=== PATIENT | female | born 1995 | race Caucasian/White ===

== ENCOUNTER 2023-04-12 12:06 | Inpatient (IN) | payer OTHER ==
[2023-04-12 12:16] VITALS: BMI 27.3
[2023-04-12 13:25] LABS: BASO % 0.7 % (0-2.0); EOS % 3.2 % (0-4.5); HEMATOCRIT 21.6 % (32.4-45.2); HEMOGLOBIN 7.3 GM/dL (10.7-15.3); LYMPH % 16.6 % (8-40); MCH 27.6 pg (25.7-33.7); MCHC 33.9 g/dl (32.0-36.0); MEAN CELL VOLUME 81.3 fl (80-96); MEAN PLT VOLUME 9.9 fl (7.5-11.1); MONO % 5.8 % (3.8-10.2); NEUT % 73.7 % (42.8-82.8); RBC 2.65 M/mm3 (3.60-5.2); RDW 15.9 % (11.6-15.6); WHITE BLOOD COUNT 8.6 K/mm3 (4.0-10.0)
[2023-04-12 13:27] LABS: PLATELET COUNT 32 10^3/uL (134-434)
[2023-04-12] MEDS ORDERED: ACETAMINOPHEN INJECTION 100 ML IVPB ONE (13:28)
[2023-04-12] MEDS ORDERED: LABETALOL HCL 20 MG/4 ML VIAL ONE (13:29)
[2023-04-12 13:34] LABS: INR 1.27 (0.83-1.09); PROTHROMBIN TIME (PATIENT) 14.7 SEC (9.7-13.0)
[2023-04-12 13:37] LABS: ACTIVATED PTT 32.3 SECONDS (25.2-36.5)
[2023-04-12 13:38] LABS: EPI CELLS 18 /uL (0-25.1); HYALINE CASTS 0 /uL (0-3.1); PH,URINE 6.5 (5.0-8.0); URINE APPEARANCE CLEAR; URINE BACTERIA 51 /uL (0-1359); URINE BILIRUBIN NEGATIVE (NEGATIVE); URINE COLOR YELLOW; URINE GLUCOSE (UA) NEGATIVE (NEGATIVE); URINE KETONE NEGATIVE (NEGATIVE); URINE LEUK ESTERASE NEGATIVE (NEGATIVE); URINE NITRITE NEGATIVE (NEGATIVE); URINE PROTEIN 4+ (NEGATIVE); URINE RBC 2896 /uL (0-23.9); URINE UROBILINOGEN 0.2 mg/dL (0.2-1.0); URINE WBC 28 /uL (0-25.8)
[2023-04-12 13:45] LABS: CHLORIDE 104 mmol/L (98-107); POTASSIUM 3.9 mmol/L (3.5-5.1); SODIUM 139 mmol/L (136-145)
[2023-04-12 13:46] LABS: ALBUMIN 3.3 g/dl (3.4-5.0); GLUCOSE,RANDOM 95 mg/dL (74-106)
[2023-04-12 13:48] LABS: ANION GAP 12 mmol/L (4-13); BLOOD UREA NITROGEN 96.1 mg/dL (7-18); CO2 22 mmol/L (21-32); MAGNESIUM 1.5 mg/dL (1.8-2.4)
[2023-04-12 13:51] LABS: SGOT/AST 45 U/L (15-37); SGPT/ALT 33 U/L (13-61)
[2023-04-12 13:52] LABS: BILIRUBIN,TOTAL 0.6 mg/dL (0.2-1); TOT PROT 6.9 g/dl (6.4-8.2)
[2023-04-12 13:53] LABS: ALK PHOS 186 U/L (45-117)
[2023-04-12 13:59] LABS: HCG,QUALITATIVE URINE Negative
[2023-04-12 14:07] LABS: CALCIUM 6.1 mg/dL (8.5-10.1); CREATININE 11.5 mg/dL (0.55-1.3)
[2023-04-12] MEDS: ACETAMINOPHEN 1000 MG/100 ML BAG IVPB ONE (14:17)
[2023-04-12] MEDS: LABETALOL HCL 5 MG/1 ML (100MG/20 ML VIAL) IVPUSH ONE (14:17)
[2023-04-12] MEDS ORDERED: MAGNESIUM SULFATE IN WATER 2 GM/50 ML IVPB IVPB ONE (14:27)
[2023-04-12] MEDS: MAGNESIUM SULF 50% (8.12 MEQ/2 ML-1 GM VIAL) IVPB ONE (14:39)
[2023-04-12 15:13] LABS: RETICULOCYTES 1.55 % (0.5-1.5)
[2023-04-12] MEDS ORDERED: CALCIUM GLUC IN NACL, ISO-OSM 1 GM/50 ML BAG IVPB ONE ×2 (15:25→17:31)
[2023-04-12 15:29] LABS: ANISOCYTOSIS 1+; MACROCYTOSIS 1+
[2023-04-12] MEDS: CALCIUM GLUC IN NACL, ISO-OSM 1 GM/50 ML BAG IVPB ONE ×2 (15:32→17:42)
[2023-04-12 16:08] LABS: HEMATOCRIT 20.4 % (32.4-45.2); MCH 27.1 pg (25.7-33.7); MCHC 33.2 g/dl (32.0-36.0); MEAN CELL VOLUME 81.5 fl (80-96); RDW 15.8 % (11.6-15.6); WHITE BLOOD COUNT 8.6 K/mm3 (4.0-10.0)
[2023-04-12 16:26] LABS: CHLORIDE 105 mmol/L (98-107); POTASSIUM 3.6 mmol/L (3.5-5.1); SODIUM 139 mmol/L (136-145)
[2023-04-12 16:28] LABS: ALBUMIN 3.2 g/dl (3.4-5.0); ANION GAP 16 mmol/L (4-13); BLOOD UREA NITROGEN 95.9 mg/dL (7-18); CO2 19 mmol/L (21-32); GLUCOSE,RANDOM 100 mg/dL (74-106)
[2023-04-12 16:31] LABS: HEMOGLOBIN 6.8 GM/dL (10.7-15.3); PLATELET COUNT 32 10^3/uL (134-434)
[2023-04-12 16:32] LABS: SGOT/AST 50 U/L (15-37); SGPT/ALT 36 U/L (13-61)
[2023-04-12 16:33] LABS: BILIRUBIN,TOTAL 0.6 mg/dL (0.2-1); TOT PROT 6.7 g/dl (6.4-8.2)
[2023-04-12 16:35] LABS: ALK PHOS 185 U/L (45-117)
[2023-04-12 16:36] LABS: CALCIUM 5.8 mg/dL (8.5-10.1); CREATININE 11.8 mg/dL (0.55-1.3)
[2023-04-12 17:12] LABS: IRON SERUM 99 ug/dL (50-175); TOTAL IRON BINDING CAPACITY 307 ug/dL (250-450)
[2023-04-12] MEDS ORDERED: NIFEdipine E.R 60 MG TABLET PO ONE (17:24)
[2023-04-12] MEDS: NIFEdipine E.R 60 MG TABLET PO SCH (17:28)
[2023-04-12 18:02] LABS: HIV INTERPRETATION NEGATIVE (NEGATIVE)
[2023-04-12] MEDS ORDERED: ASPIRIN 81 MG CHEWABLE TABLETS PO ONE (18:51)
[2023-04-12] MEDS: hydrALAZINE HCL 20 MG/ML VIAL IVPUSH ONE (21:40)
[2023-04-13 07:54] LABS: HEMATOCRIT 23.9 % (32.4-45.2); HEMOGLOBIN 8.3 GM/dL (10.7-15.3); MCH 28.9 pg (25.7-33.7); MCHC 34.6 g/dl (32.0-36.0); MEAN CELL VOLUME 83.7 fl (80-96); MEAN PLT VOLUME 10.4 fl (7.5-11.1); RBC 2.86 M/mm3 (3.60-5.2); RDW 15.9 % (11.6-15.6); WHITE BLOOD COUNT 9.9 K/mm3 (4.0-10.0)
[2023-04-13 07:57] LABS: CHLORIDE 104 mmol/L (98-107); POTASSIUM 3.9 mmol/L (3.5-5.1); SODIUM 139 mmol/L (136-145)
[2023-04-13 07:58] LABS: PLATELET COUNT 33 10^3/uL (134-434)
[2023-04-13 08:01] LABS: INR 1.27 (0.83-1.09); PROTHROMBIN TIME (PATIENT) 14.7 SEC (9.7-13.0)
[2023-04-13 08:03] LABS: ALBUMIN 3.1 g/dl (3.4-5.0); GLUCOSE,RANDOM 95 mg/dL (74-106); PHOSPHOROUS 7.1 mg/dL (2.5-4.9); SGPT/ALT 65 U/L (13-61)
[2023-04-13 08:04] LABS: BILIRUBIN,TOTAL 0.6 mg/dL (0.2-1); TOT PROT 6.5 g/dl (6.4-8.2)
[2023-04-13 08:05] LABS: ANION GAP 15 mmol/L (4-13); CO2 20 mmol/L (21-32); MAGNESIUM 2.4 mg/dL (1.8-2.4)
[2023-04-13 08:06] LABS: ALK PHOS 190 U/L (45-117); SGOT/AST 95 U/L (15-37)
[2023-04-13 08:11] LABS: CALCIUM 6.2 mg/dL (8.5-10.1); CREATININE 12.2 mg/dL (0.55-1.3)
[2023-04-13] MEDS: CALCIUM GLUCONATE 10% - 1,000 MG/10 ML VIAL IVPB ONE (10:12)
[2023-04-13] MEDS: LABETALOL HCL 200 MG TABLET (FP) PO SCH (13:46)
[2023-04-13] MEDS: traMADol HCL 50 MG TABLET PO ONE (13:46)
[2023-04-14 08:58] LABS: HEMATOCRIT 21.4 % (32.4-45.2); HEMOGLOBIN 7.4 GM/dL (10.7-15.3); MCH 28.7 pg (25.7-33.7); MCHC 34.4 g/dl (32.0-36.0); MEAN CELL VOLUME 83.4 fl (80-96); MEAN PLT VOLUME 10.4 fl (7.5-11.1); PLATELET COUNT 40 10^3/uL (134-434); RBC 2.56 M/mm3 (3.60-5.2); RDW 16.1 % (11.6-15.6); WHITE BLOOD COUNT 7.9 K/mm3 (4.0-10.0)
[2023-04-14 09:34] LABS: ALK PHOS 175 U/L (45-117); ANION GAP 18 mmol/L (4-13); BILIRUBIN,TOTAL 0.5 mg/dL (0.2-1); BLOOD UREA NITROGEN 101.2 mg/dL (7-18); CHLORIDE 102 mmol/L (98-107); CO2 20 mmol/L (21-32); CREATININE 12.9 mg/dL (0.55-1.3); GLUCOSE,RANDOM 84 mg/dL (74-106); POTASSIUM 3.6 mmol/L (3.5-5.1); SGOT/AST 121 U/L (15-37); SGPT/ALT 105 U/L (13-61); SODIUM 139 mmol/L (136-145); TOT PROT 6.2 g/dl (6.4-8.2)
[2023-04-14] MEDS: CALCIUM GLUC IN NACL, ISO-OSM 1 GM/50 ML BAG IVPB ONE (11:48)
[2023-04-15 07:50] LABS: HEMATOCRIT 19.5 % (32.4-45.2); MCH 28.4 pg (25.7-33.7); MCHC 33.7 g/dl (32.0-36.0); MEAN CELL VOLUME 84.2 fl (80-96); MEAN PLT VOLUME 9.9 fl (7.5-11.1); PLATELET COUNT 52 10^3/uL (134-434); RBC 2.32 M/mm3 (3.60-5.2); RDW 16.3 % (11.6-15.6); WHITE BLOOD COUNT 9.4 K/mm3 (4.0-10.0)
[2023-04-15 07:58] LABS: CHLORIDE 103 mmol/L (98-107); SODIUM 138 mmol/L (136-145)
[2023-04-15 08:11] LABS: ALBUMIN 2.8 g/dl (3.4-5.0); ANION GAP 13 mmol/L (4-13); CO2 21 mmol/L (21-32); GLUCOSE,RANDOM 80 mg/dL (74-106); MAGNESIUM 1.9 mg/dL (1.8-2.4)
[2023-04-15 08:13] LABS: SGOT/AST 148 U/L (15-37); SGPT/ALT 141 U/L (13-61)
[2023-04-15 08:14] LABS: BILIRUBIN,TOTAL 0.5 mg/dL (0.2-1); TOT PROT 5.8 g/dl (6.4-8.2)
[2023-04-15 08:16] LABS: ALK PHOS 165 U/L (45-117); BLOOD UREA NITROGEN 104.1 mg/dL (7-18); CALCIUM 5.5 mg/dL (8.5-10.1); CREATININE 13.6 mg/dL (0.55-1.3)
[2023-04-15 08:29] LABS: HEMOGLOBIN 6.6 GM/dL (10.7-15.3)
[2023-04-15] MEDS: CALCIUM GLUC IN NACL, ISO-OSM 1 GM/50 ML BAG IVPB ONE (08:58)
[2023-04-15 13:51] LABS: IRON SERUM 50 ug/dL (50-175)
[2023-04-15 13:52] LABS: TOTAL IRON BINDING CAPACITY 273 ug/dL (250-450)
[2023-04-15] MEDS ORDERED: SODIUM CHLORIDE 250 ML IV PRN (15:08)
[2023-04-15] MEDS: ACETAMINOPHEN 1000 MG/100 ML BAG IVPB ONE (16:50)
[2023-04-16 00:37] LABS: HEMATOCRIT 27.2 % (32.4-45.2); HEMOGLOBIN 9.6 GM/dL (10.7-15.3); MCH 29.6 pg (25.7-33.7); MCHC 35.3 g/dl (32.0-36.0); MEAN CELL VOLUME 83.8 fl (80-96); MEAN PLT VOLUME 9.4 fl (7.5-11.1); PLATELET COUNT 53 10^3/uL (134-434); RBC 3.25 M/mm3 (3.60-5.2); RDW 15.5 % (11.6-15.6); WHITE BLOOD COUNT 11.7 K/mm3 (4.0-10.0)
[2023-04-16 06:30] LABS: HEMATOCRIT 28.1 % (32.4-45.2); MCH 29.9 pg (25.7-33.7); MCHC 35.7 g/dl (32.0-36.0); MEAN CELL VOLUME 83.8 fl (80-96); MEAN PLT VOLUME 9.9 fl (7.5-11.1); PLATELET COUNT 61 10^3/uL (134-434); RBC 3.36 M/mm3 (3.60-5.2); RDW 15.6 % (11.6-15.6); WHITE BLOOD COUNT 10.8 K/mm3 (4.0-10.0)
[2023-04-16 06:49] LABS: CHLORIDE 102 mmol/L (98-107); POTASSIUM 3.9 mmol/L (3.5-5.1); SODIUM 137 mmol/L (136-145)
[2023-04-16 06:58] LABS: ALBUMIN 2.9 g/dl (3.4-5.0); ANION GAP 16 mmol/L (4-13); CO2 20 mmol/L (21-32); GLUCOSE,RANDOM 82 mg/dL (74-106); MAGNESIUM 2.1 mg/dL (1.8-2.4)
[2023-04-16 07:01] LABS: SGOT/AST 163 U/L (15-37); SGPT/ALT 180 U/L (13-61)
[2023-04-16 07:03] LABS: BILIRUBIN,TOTAL 0.6 mg/dL (0.2-1); TOT PROT 6.2 g/dl (6.4-8.2)
[2023-04-16 07:04] LABS: ALK PHOS 179 U/L (45-117)
[2023-04-16] MEDS ORDERED: LIDOCAINE HCL 1%, 10 MG/ML (20ML VIAL) ONE (07:11)
[2023-04-16 07:15] LABS: CALCIUM 5.7 mg/dL (8.5-10.1); CREATININE 13.6 mg/dL (0.55-1.3)
[2023-04-16 07:34] LABS: PHOSPHOROUS 8.5 mg/dL (2.5-4.9)
[2023-04-16] MEDS ORDERED: MIDAZOLAM HCL 2 MG/2 ML SINGLE DOSE VIAL ONE (07:53)
[2023-04-16] MEDS ORDERED: PROPOFOL 20 ML ONE ×2 (07:57→08:07)
[2023-04-16] MEDS: ceFAZolin SODIUM 1 GM VIAL IVPB ONE (08:00)
[2023-04-16] MEDS: LIDOCAINE HCL 1%, 10 MG/ML (20ML VIAL) INF ONE (08:06)
[2023-04-16] MEDS ORDERED: ONDANSETRON 4 MG/2 ML VIAL IVPUSH PRN ×2 (08:30→08:41)
[2023-04-16] MEDS ORDERED: SODIUM CHLORIDE 250 ML IV PRN (08:41)
[2023-04-16] MEDS: CALCIUM GLUC IN NACL, ISO-OSM 1 GM/50 ML BAG IVPB ONE ×2 (10:39→13:18)
[2023-04-16] MEDS: NIFEdipine E.R 60 MG TABLET PO SCH (10:39)
[2023-04-16] MEDS: LABETALOL HCL 200 MG TABLET (FP) PO SCH (10:39)
[2023-04-16] MEDS: LACTATED RINGERS SOLUTION 1,000 ML IV SCH ×2 (10:39→13:17)
[2023-04-16 20:16] LABS: ANTIGLOMERULAR BASEMENT MEN.AB <0.2 units (0.0-0.9); ATYPICAL pANCA <1:20 titer (Neg:<1:20); C-ANCA <1:20 titer (Neg:<1:20)
[2023-04-17 02:27] LABS: BASO % 0.5 % (0-2.0); EOS % 1.7 % (0-4.5); HEMATOCRIT 29.9 % (32.4-45.2); HEMOGLOBIN 10.6 GM/dL (10.7-15.3); LYMPH % 16.2 % (8-40); MCH 29.8 pg (25.7-33.7); MCHC 35.5 g/dl (32.0-36.0); MEAN PLT VOLUME 8.9 fl (7.5-11.1); MONO % 7.6 % (3.8-10.2); PLATELET COUNT 47 10^3/uL (134-434); RBC 3.56 M/mm3 (3.60-5.2); RDW 15.7 % (11.6-15.6); WHITE BLOOD COUNT 10.2 K/mm3 (4.0-10.0)
[2023-04-17 06:36] LABS: HEMATOCRIT 32.1 % (32.4-45.2); HEMOGLOBIN 11.1 GM/dL (10.7-15.3); MCH 29.3 pg (25.7-33.7); MCHC 34.7 g/dl (32.0-36.0); MEAN CELL VOLUME 84.3 fl (80-96); MEAN PLT VOLUME 9.6 fl (7.5-11.1); PLATELET COUNT 52 10^3/uL (134-434); RDW 15.5 % (11.6-15.6); WHITE BLOOD COUNT 10.6 K/mm3 (4.0-10.0)
[2023-04-17 06:48] LABS: INR 1.21 (0.83-1.09)
[2023-04-17 06:51] LABS: ACTIVATED PTT 29.7 SECONDS (25.2-36.5)
[2023-04-17 07:28] LABS: CHLORIDE 104 mmol/L (98-107); POTASSIUM 3.8 mmol/L (3.5-5.1); SODIUM 143 mmol/L (136-145)
[2023-04-17 07:37] LABS: GLUCOSE,RANDOM 90 mg/dL (74-106)
[2023-04-17 07:38] LABS: ANION GAP 14 mmol/L (4-13); CO2 25 mmol/L (21-32)
[2023-04-17 07:42] LABS: SGOT/AST 103 U/L (15-37); SGPT/ALT 57 U/L (13-61)
[2023-04-17 07:43] LABS: BILIRUBIN,TOTAL 0.8 mg/dL (0.2-1); TOT PROT 6.3 g/dl (6.4-8.2)
[2023-04-17 07:44] LABS: ALK PHOS 184 U/L (45-117)
[2023-04-17 07:54] LABS: BLOOD UREA NITROGEN 64.1 mg/dL (7-18); CALCIUM 6.5 mg/dL (8.5-10.1); CREATININE 9.5 mg/dL (0.55-1.3)
[2023-04-17] MEDS: CALCIUM ACETATE 667 MG CAPSULE (FP) PO SCH (09:24)
[2023-04-17] MEDS: CALCIUM GLUC IN NACL, ISO-OSM 1 GM/50 ML BAG IVPB ONE (09:25)
[2023-04-17] MEDS ORDERED: SODIUM CHLORIDE 250 ML IV PRN (11:37)
[2023-04-17] MEDS: CALCIUM GLUCONATE 10% - 1,000 MG/10 ML VIAL IVPB ONE (11:48)
[2023-04-17 15:44] LABS: GAMMA GLUTAMYL TRANSPEPTIDASE 64 U/L (5-85)
[2023-04-17] MEDS: NIFEdipine E.R. 30 MG TABLET PO ONE (15:55)
[2023-04-17 16:08] LABS: TOTAL PROTEIN, URINE 249.4 mg/dL (Not Estab.)
[2023-04-17 17:08] LABS: FREE KAPPA,SERUM 156.3 mg/L (3.3-19.4)
[2023-04-18 03:48] VITALS: RESP 18
[2023-04-18 11:05] LABS: HEMATOCRIT 28.1 % (32.4-45.2); HEMOGLOBIN 9.9 GM/dL (10.7-15.3); MCHC 35.3 g/dl (32.0-36.0); MEAN PLT VOLUME 9.2 fl (7.5-11.1); PLATELET COUNT 83 10^3/uL (134-434); RBC 3.31 M/mm3 (3.60-5.2); RDW 15.7 % (11.6-15.6); WHITE BLOOD COUNT 10.3 K/mm3 (4.0-10.0)
[2023-04-18 11:26] LABS: CHLORIDE 101 mmol/L (98-107); POTASSIUM 3.6 mmol/L (3.5-5.1); SODIUM 137 mmol/L (136-145)
[2023-04-18 11:28] LABS: ANION GAP 11 mmol/L (4-13); CO2 25 mmol/L (21-32); GLUCOSE,RANDOM 214 mg/dL (74-106)
[2023-04-18 11:29] LABS: ALBUMIN 2.9 g/dl (3.4-5.0); BLOOD UREA NITROGEN 74.2 mg/dL (7-18)
[2023-04-18 11:31] LABS: PHOSPHOROUS 7.2 mg/dL (2.5-4.9); SGPT/ALT 21 U/L (13-61)
[2023-04-18 11:32] LABS: SGOT/AST 45 U/L (15-37)
[2023-04-18 11:33] LABS: BILIRUBIN,TOTAL 0.6 mg/dL (0.2-1); TOT PROT 6.1 g/dl (6.4-8.2)
[2023-04-18 11:34] LABS: ALK PHOS 171 U/L (45-117); CALCIUM 5.5 mg/dL (8.5-10.1); CREATININE 10.4 mg/dL (0.55-1.3)
[2023-04-18] MEDS: NIFEdipine E.R. 90 MG TABLET PO SCH (12:27)
[2023-04-18 13:08] LABS: ALBUMIN % 59.9 % (.); ALPHA-1 FOR UPE 3.5 % (.); TOTAL PROTEIN, URINE 267.6 mg/dL (Not Estab.)
[2023-04-18 15:33] VITALS: TEMP 98
[2023-04-18 15:52] VITALS: BP 152/86; PULSE 80
== END 2023-04-18 18:24 | disposition home or self-care (01) | DRG 470 ==
LOC: JER 12:06 → JERBED 14:19 → J4W 20:31
PROVIDERS: ADMIT Internal Medicine; ATTEND Internal Medicine
PROC: 30233N1 Transfusion of Nonautologous Red Blood Cells into Peripheral Vein, Percutaneous Approach (ICD-10-PCS; 2023-04-12)
PROC: 0JH63XZ Insertion of Tunneled Vascular Access Device into Chest Subcutaneous Tissue and Fascia, Percutaneous Approach (ICD-10-PCS; principal; 2023-04-16 07:30)
PROC: 5A1D70Z Performance of Urinary Filtration, Intermittent, Less than 6 Hours Per Day (ICD-10-PCS; 2023-04-18)
DX: I12.0 Hypertensive chronic kidney disease with stage 5 chronic kidney disease or end stage renal disease (principal); D69.3 Immune thrombocytopenic purpura; D69.6 Thrombocytopenia, unspecified; E87.20 Acidosis, unspecified; N18.6 End stage renal disease; D62 Acute posthemorrhagic anemia; E83.51 Hypocalcemia; D63.1 Anemia in chronic kidney disease; I16.1 Hypertensive emergency; Z99.2 Dependence on renal dialysis; E21.3 Hyperparathyroidism, unspecified
CPT/HCPCS: 0241U-QW; 36415; 36430; 70450-TC; 71045-TC-FY; 71046-TC-FY; 74181-TC; 76000-TC-FY; 76700-TC; 76775-TC; 80053; 81003; 82248; 82310; 82550; 82553; 82570; 82607; 82668; 82728; 82746; 82977; 83010; 83036; 83516; 83520; 83540; 83550; 83615; 83735; 83883; 83970; 84100; 84155; 84156; 84157; 84165; 84166; 84436; 84443; 84484; 84703; 85025; 85027; 85032; 85045; 85610; 85730; 86038; 86160; 86225; 86256; 86704; 86707; 86708; 86803; 86850; 86900; 86901; 86922; 87040; 87086; 87340; 87389; 87517; 87902; 93005; 93010; 93306-TC; 93975; 94760; 99285-25; C1750; J0131; J1644; P9037; P9038; P9058

== ENCOUNTER 2023-05-13 11:59 | Inpatient (IN) | payer OTHER ==
[2023-05-13 15:27] LABS: VENOUS BASE EXCESS 0.4 mmol/L (-2-2); VENOUS O2 SATURATION 84.3 % (70-80); VENOUS PCO2 36.7 mmHg (38-52); VENOUS PH 7.442 (7.310-7.410)
[2023-05-13 15:38] LABS: INR 1.2 (0.83-1.09); PROTHROMBIN TIME (PATIENT) 13.9 SEC (9.7-13.0)
[2023-05-13 15:41] LABS: ACTIVATED PTT 29.5 SECONDS (25.2-36.5)
[2023-05-13 15:54] LABS: HEMATOCRIT 20.6 % (32.4-45.2); MCH 27.8 pg (25.7-33.7); MCHC 34.1 g/dl (32.0-36.0); MEAN CELL VOLUME 81.4 fl (80-96); MEAN PLT VOLUME 8.8 fl (7.5-11.1); PLATELET COUNT 38 10^3/uL (134-434); RBC 2.54 M/mm3 (3.60-5.2); RDW 15.7 % (11.6-15.6); WHITE BLOOD COUNT 21.4 K/mm3 (4.0-10.0)
[2023-05-13 16:04] LABS: POTASSIUM 3.9 mmol/L (3.5-5.1)
[2023-05-13 16:06] LABS: CALCIUM 8.7 mg/dL (8.5-10.1)
[2023-05-13 16:07] LABS: ALBUMIN 3.5 g/dl (3.4-5.0); BLOOD UREA NITROGEN 16.3 mg/dL (7-18)
[2023-05-13 16:10] LABS: CREATININE 3.5 mg/dL (0.55-1.3)
[2023-05-13 16:11] LABS: BILIRUBIN,TOTAL 0.7 mg/dL (0.2-1); TOT PROT 6.9 g/dl (6.4-8.2)
[2023-05-13 18:43] LABS: ANISOCYTOSIS 1+
[2023-05-13 18:54] LABS: PLATELET ESTIMATE DECREASED
[2023-05-13] MEDS ORDERED: VANCOMYCIN/WATER FOR INJ (PEG) 1,000 MG/200 ML BAG IVPB ONE (20:00)
[2023-05-13 20:21] LABS: EPI CELLS 12 /uL (0-25.1); HYALINE CASTS 0 /uL (0-3.1); PH,URINE 7.5 (5.0-8.0); URINE APPEARANCE CLEAR; URINE BACTERIA 42 /uL (0-1359); URINE BILIRUBIN NEGATIVE (NEGATIVE); URINE COLOR YELLOW; URINE GLUCOSE (UA) NEGATIVE (NEGATIVE); URINE KETONE NEGATIVE (NEGATIVE); URINE LEUK ESTERASE TRACE (NEGATIVE); URINE NITRITE NEGATIVE (NEGATIVE); URINE PROTEIN 3+ (NEGATIVE); URINE RBC 35 /uL (0-23.9); URINE UROBILINOGEN 0.2 mg/dL (0.2-1.0); URINE WBC 13 /uL (0-25.8)
[2023-05-13] MEDS: PIPERACILLIN/TAZOB 2.25 GM 2.25 GM in DEXTROSE 5%-WATER - 50 ML IVPB SCH (21:07)
[2023-05-13 21:17] VITALS: BMI 25.5
[2023-05-13] MEDS: LABETALOL HCL 200 MG TABLET (FP) PO SCH (21:32)
[2023-05-13 22:37] LABS: YEAST NONE SEEN (NEGATIVE)
[2023-05-14] MEDS: VANCOMYCIN/WATER FOR INJ (PEG) 1,000 MG/200 ML BAG IVPB ONE (01:07)
[2023-05-14 02:01] LABS: BASO % 0.8 % (0-2.0); HEMATOCRIT 23.8 % (32.4-45.2); HEMOGLOBIN 8.1 GM/dL (10.7-15.3); LYMPH % 18.9 % (8-40); MCH 28.6 pg (25.7-33.7); MCHC 34.1 g/dl (32.0-36.0); MEAN CELL VOLUME 83.8 fl (80-96); MEAN PLT VOLUME 9.7 fl (7.5-11.1); MONO % 4.7 % (3.8-10.2); NEUT % 72.6 % (42.8-82.8); PLATELET COUNT 41 10^3/uL (134-434); RBC 2.83 M/mm3 (3.60-5.2); RDW 15.5 % (11.6-15.6); WHITE BLOOD COUNT 14.7 K/mm3 (4.0-10.0)
[2023-05-14] MEDS: CALCIUM ACETATE 667 MG CAPSULE (FP) PO SCH (08:20)
[2023-05-14 08:47] LABS: BASO % 0.7 % (0-2.0); EOS % 2.7 % (0-4.5); HEMATOCRIT 24.6 % (32.4-45.2); HEMOGLOBIN 8.3 GM/dL (10.7-15.3); LYMPH % 17.3 % (8-40); MCH 28.4 pg (25.7-33.7); MCHC 33.9 g/dl (32.0-36.0); MEAN CELL VOLUME 83.6 fl (80-96); MONO % 3.7 % (3.8-10.2); NEUT % 75.6 % (42.8-82.8); PLATELET COUNT 46 10^3/uL (134-434); RBC 2.94 M/mm3 (3.60-5.2); WHITE BLOOD COUNT 12.5 K/mm3 (4.0-10.0)
[2023-05-14 08:49] LABS: INR 1.19 (0.83-1.09); PROTHROMBIN TIME (PATIENT) 13.8 SEC (9.7-13.0)
[2023-05-14 08:51] LABS: ACTIVATED PTT 28.7 SECONDS (25.2-36.5)
[2023-05-14 09:04] LABS: POTASSIUM 4.4 mmol/L (3.5-5.1)
[2023-05-14 09:13] LABS: ALBUMIN 3.7 g/dl (3.4-5.0); CALCIUM 8.5 mg/dL (8.5-10.1); MAGNESIUM 2.1 mg/dL (1.8-2.4)
[2023-05-14 09:14] LABS: BLOOD UREA NITROGEN 31.8 mg/dL (7-18)
[2023-05-14 09:16] LABS: CREATININE 5.7 mg/dL (0.55-1.3); PHOSPHOROUS 4.6 mg/dL (2.5-4.9)
[2023-05-14 09:17] LABS: BILIRUBIN,TOTAL 1.1 mg/dL (0.2-1)
[2023-05-14 09:18] LABS: TOT PROT 7.1 g/dl (6.4-8.2)
[2023-05-14] MEDS ORDERED: ACETAMINOPHEN 1000 MG/100 ML BAG IVPB PRN (09:37)
[2023-05-14] MEDS: NIFEdipine E.R. 90 MG TABLET PO SCH (10:26)
[2023-05-15] MEDS ORDERED: SODIUM CHLORIDE 250 ML IV PRN (09:19)
[2023-05-15 10:34] LABS: HEMOGLOBIN 7.2 GM/dL (10.7-15.3); MCH 28.8 pg (25.7-33.7); MCHC 34.3 g/dl (32.0-36.0); MEAN PLT VOLUME 9.3 fl (7.5-11.1); PLATELET COUNT 47 10^3/uL (134-434); WHITE BLOOD COUNT 9.3 K/mm3 (4.0-10.0)
[2023-05-15 11:05] LABS: CHLORIDE 106 mmol/L (98-107); POTASSIUM 4.2 mmol/L (3.5-5.1); SODIUM 141 mmol/L (136-145)
[2023-05-15 11:07] LABS: ALBUMIN 3.2 g/dl (3.4-5.0)
[2023-05-15 11:08] LABS: ANION GAP 13 mmol/L (4-13); BLOOD UREA NITROGEN 48.8 mg/dL (7-18); CALCIUM 8.6 mg/dL (8.5-10.1); CO2 22 mmol/L (21-32); GLUCOSE,RANDOM 174 mg/dL (74-106)
[2023-05-15] MEDS: EPOETIN ALFA-EPBX 10,000 UNIT/ML VIAL SQ ONE (11:08)
[2023-05-15 11:10] LABS: SGOT/AST 19 U/L (15-37); SGPT/ALT 18 U/L (13-61)
[2023-05-15 11:12] LABS: BILIRUBIN,TOTAL 0.7 mg/dL (0.2-1); TOT PROT 6.8 g/dl (6.4-8.2)
[2023-05-15 11:18] LABS: ALK PHOS 206 U/L (45-117); CREATININE 7.8 mg/dL (0.55-1.3)
[2023-05-15] MEDS ORDERED: IOHEXOL (OMNIPAQUE PO) 12 MG/ML - 500 ML BOTTLE PO ONE (12:55)
[2023-05-15] MEDS ORDERED: PIPERACILLIN/TAZOBACTAM 2.25 GM VIAL IVPB ONE (12:57)
[2023-05-15] MEDS: ACETAMINOPHEN 325 MG TABLET (FP) PO PRN (17:16)
[2023-05-16 10:13] LABS: HEMATOCRIT 24.1 % (32.4-45.2); HEMOGLOBIN 8.3 GM/dL (10.7-15.3); MCH 28.8 pg (25.7-33.7); MCHC 34.6 g/dl (32.0-36.0); MEAN CELL VOLUME 83.4 fl (80-96); MEAN PLT VOLUME 9.8 fl (7.5-11.1); PLATELET COUNT 48 10^3/uL (134-434); RBC 2.89 M/mm3 (3.60-5.2); RDW 16.5 % (11.6-15.6); WHITE BLOOD COUNT 9.5 K/mm3 (4.0-10.0)
[2023-05-16 10:23] LABS: POTASSIUM 3.9 mmol/L (3.5-5.1)
[2023-05-16 10:35] LABS: CALCIUM 8.7 mg/dL (8.5-10.1)
[2023-05-16 10:36] LABS: ALBUMIN 3.7 g/dl (3.4-5.0); MAGNESIUM 2.2 mg/dL (1.8-2.4)
[2023-05-16 10:39] LABS: CREATININE 5.6 mg/dL (0.55-1.3); PHOSPHOROUS 4.9 mg/dL (2.5-4.9)
[2023-05-16 10:40] LABS: BILIRUBIN,TOTAL 0.6 mg/dL (0.2-1)
[2023-05-16 10:41] LABS: TOT PROT 7.5 g/dl (6.4-8.2)
[2023-05-16 10:44] LABS: BLOOD UREA NITROGEN 21.7 mg/dL (7-18)
[2023-05-16] MEDS ORDERED: MIDAZOLAM HCL 2 MG/2 ML SINGLE DOSE VIAL ONE (13:29)
[2023-05-16] MEDS ORDERED: FENTANYL CITRATE/PF 50 MCG/ML VIAL ONE (13:29)
[2023-05-16] MEDS: FENTANYL CITRATE/PF 50 MCG/ML VIAL IVPUSH ONE (14:20)
[2023-05-16] MEDS: MIDAZOLAM HCL 2 MG/2 ML SINGLE DOSE VIAL IVPUSH ONE (14:20)
[2023-05-16] MEDS ORDERED: SODIUM CHLORIDE 250 ML IV PRN (17:18)
[2023-05-17 08:30] LABS: HEMATOCRIT 23.2 % (32.4-45.2); HEMOGLOBIN 7.8 GM/dL (10.7-15.3); MCH 28.6 pg (25.7-33.7); MCHC 33.8 g/dl (32.0-36.0); MEAN CELL VOLUME 84.8 fl (80-96); MEAN PLT VOLUME 9.8 fl (7.5-11.1); PLATELET COUNT 54 10^3/uL (134-434); RBC 2.73 M/mm3 (3.60-5.2); RDW 16.3 % (11.6-15.6); WHITE BLOOD COUNT 9.9 K/mm3 (4.0-10.0)
[2023-05-17 08:49] LABS: CHLORIDE 100 mmol/L (98-107); POTASSIUM 4.1 mmol/L (3.5-5.1); SODIUM 137 mmol/L (136-145)
[2023-05-17 09:03] LABS: ALBUMIN 3.7 g/dl (3.4-5.0); ANION GAP 9 mmol/L (4-13); BLOOD UREA NITROGEN 33.1 mg/dL (7-18); CALCIUM 8.4 mg/dL (8.5-10.1); CO2 28 mmol/L (21-32); GLUCOSE,RANDOM 76 mg/dL (74-106)
[2023-05-17 09:07] LABS: SGOT/AST 17 U/L (15-37); SGPT/ALT 19 U/L (13-61)
[2023-05-17 09:08] LABS: BILIRUBIN,TOTAL 0.6 mg/dL (0.2-1)
[2023-05-17 09:09] LABS: ALK PHOS 208 U/L (45-117)
[2023-05-17 09:14] LABS: CREATININE 8.1 mg/dL (0.55-1.3)
[2023-05-17] MEDS: EPOETIN ALFA-EPBX 10,000 UNIT/ML VIAL IVPUSH ONE (11:39)
[2023-05-17] MEDS: LIDOCAINE HCL 1%, 10 MG/ML (50 mL VIAL) SQ ONE ×2 (17:13→17:42)
[2023-05-17] MEDS: LIDOCAINE HCL 1%, 10 MG/ML (20ML VIAL) SQ ONE (17:43)
[2023-05-18 08:47] LABS: HEMATOCRIT 24.5 % (32.4-45.2); HEMOGLOBIN 8.3 GM/dL (10.7-15.3); MCH 28.9 pg (25.7-33.7); MEAN CELL VOLUME 84.9 fl (80-96); MEAN PLT VOLUME 11.1 fl (7.5-11.1); PLATELET COUNT 66 10^3/uL (134-434); RBC 2.89 M/mm3 (3.60-5.2); RDW 16.5 % (11.6-15.6); WHITE BLOOD COUNT 9.9 K/mm3 (4.0-10.0)
[2023-05-18 09:09] LABS: POTASSIUM 3.4 mmol/L (3.5-5.1)
[2023-05-18 09:13] LABS: ALBUMIN 3.8 g/dl (3.4-5.0)
[2023-05-18 09:17] LABS: BILIRUBIN,TOTAL 0.6 mg/dL (0.2-1); TOT PROT 7.5 g/dl (6.4-8.2)
[2023-05-18] MEDS: POTASSIUM CHLORIDE ORAL LIQUID 20 MEQ/15 ML PO ONE (10:29)
[2023-05-19 09:47] LABS: BASO % 1.1 % (0-2.0); EOS % 4.9 % (0-4.5); HEMATOCRIT 25.5 % (32.4-45.2); HEMOGLOBIN 8.8 GM/dL (10.7-15.3); LYMPH % 20.1 % (8-40); MCH 29.3 pg (25.7-33.7); MCHC 34.4 g/dl (32.0-36.0); MEAN CELL VOLUME 85.3 fl (80-96); MEAN PLT VOLUME 10.7 fl (7.5-11.1); MONO % 4.8 % (3.8-10.2); NEUT % 69.1 % (42.8-82.8); PLATELET COUNT 100 10^3/uL (134-434); RBC 2.99 M/mm3 (3.60-5.2); RDW 16.7 % (11.6-15.6); WHITE BLOOD COUNT 8.6 K/mm3 (4.0-10.0)
[2023-05-19 10:22] LABS: CHLORIDE 98 mmol/L (98-107); POTASSIUM 3.7 mmol/L (3.5-5.1); SODIUM 138 mmol/L (136-145)
[2023-05-19 10:26] LABS: ANION GAP 11 mmol/L (4-13); BLOOD UREA NITROGEN 29.6 mg/dL (7-18); CALCIUM 9.7 mg/dL (8.5-10.1); CO2 29 mmol/L (21-32); GLUCOSE,RANDOM 118 mg/dL (74-106); MAGNESIUM 2.3 mg/dL (1.8-2.4)
[2023-05-19 10:30] LABS: PHOSPHOROUS 4.5 mg/dL (2.5-4.9)
[2023-05-19 10:34] LABS: CREATININE 8.7 mg/dL (0.55-1.3)
[2023-05-20 10:12] LABS: HEMATOCRIT 22.5 % (32.4-45.2); HEMOGLOBIN 7.8 GM/dL (10.7-15.3); MCH 29.5 pg (25.7-33.7); MCHC 34.9 g/dl (32.0-36.0); MEAN CELL VOLUME 84.7 fl (80-96); MEAN PLT VOLUME 9.8 fl (7.5-11.1); PLATELET COUNT 98 10^3/uL (134-434); RBC 2.66 M/mm3 (3.60-5.2); RDW 16.7 % (11.6-15.6); WHITE BLOOD COUNT 8.8 K/mm3 (4.0-10.0)
[2023-05-20 10:20] LABS: CHLORIDE 99 mmol/L (98-107); POTASSIUM 3.8 mmol/L (3.5-5.1); SODIUM 134 mmol/L (136-145)
[2023-05-20 10:31] LABS: CALCIUM 8.9 mg/dL (8.5-10.1)
[2023-05-20 10:32] LABS: ALBUMIN 3.5 g/dl (3.4-5.0); ANION GAP 7 mmol/L (4-13); BLOOD UREA NITROGEN 41.1 mg/dL (7-18); CO2 28 mmol/L (21-32); GLUCOSE,RANDOM 83 mg/dL (74-106); MAGNESIUM 2.2 mg/dL (1.8-2.4)
[2023-05-20 10:33] LABS: PHOSPHOROUS 4.9 mg/dL (2.5-4.9); SGPT/ALT 16 U/L (13-61)
[2023-05-20 10:35] LABS: ALK PHOS 167 U/L (45-117); BILIRUBIN,TOTAL 0.5 mg/dL (0.2-1); CREATININE 10.6 mg/dL (0.55-1.3); SGOT/AST 9 U/L (15-37); TOT PROT 6.8 g/dl (6.4-8.2)
[2023-05-20] MEDS ORDERED: LIDOCAINE HCL 1%, 10 MG/ML (20ML VIAL) ONE (12:44)
[2023-05-20] MEDS ORDERED: PROPOFOL 40 ML ONE (13:00)
[2023-05-20] MEDS ORDERED: FENTANYL CITRATE/PF 50 MCG/ML VIAL ONE (13:00)
[2023-05-20] MEDS ORDERED: MIDAZOLAM HCL 2 MG/2 ML SINGLE DOSE VIAL ONE (13:05)
[2023-05-20] MEDS: ceFAZolin SODIUM 1 GM VIAL IVPB ONE (13:25)
[2023-05-20] MEDS: LIDOCAINE HCL 1%, 10 MG/ML (50 mL VIAL) INF ONE (13:29)
[2023-05-20] MEDS ORDERED: SODIUM CHLORIDE 250 ML IV PRN ×2 (13:51→14:49)
[2023-05-20] MEDS: ACETAMINOPHEN 325 MG TABLET (FP) PO PRN (17:47)
[2023-05-20] MEDS: CALCIUM ACETATE 667 MG CAPSULE (FP) PO SCH (17:49)
[2023-05-20 21:21] VITALS: RESP 18
[2023-05-20] MEDS: LABETALOL HCL 200 MG TABLET (FP) PO SCH (21:49)
[2023-05-21] MEDS: EPOETIN ALFA-EPBX 10,000 UNIT/ML VIAL SQ ONE (09:52)
[2023-05-21 09:59] LABS: HEMATOCRIT 23.1 % (32.4-45.2); HEMOGLOBIN 7.9 GM/dL (10.7-15.3); MCH 29.5 pg (25.7-33.7); MCHC 34.3 g/dl (32.0-36.0); MEAN PLT VOLUME 10.4 fl (7.5-11.1); PLATELET COUNT 96 10^3/uL (134-434); RBC 2.68 M/mm3 (3.60-5.2); RDW 17.3 % (11.6-15.6); WHITE BLOOD COUNT 9.4 K/mm3 (4.0-10.0)
[2023-05-21 10:22] LABS: CHLORIDE 100 mmol/L (98-107); POTASSIUM 4.1 mmol/L (3.5-5.1); SODIUM 135 mmol/L (136-145)
[2023-05-21 10:28] LABS: CALCIUM 8.6 mg/dL (8.5-10.1)
[2023-05-21 10:30] LABS: ALBUMIN 3.8 g/dl (3.4-5.0); ANION GAP 9 mmol/L (4-13); BLOOD UREA NITROGEN 48.1 mg/dL (7-18); CO2 26 mmol/L (21-32); GLUCOSE,RANDOM 111 mg/dL (74-106); MAGNESIUM 2.2 mg/dL (1.8-2.4)
[2023-05-21 10:33] LABS: PHOSPHOROUS 5.9 mg/dL (2.5-4.9); SGOT/AST 14 U/L (15-37); SGPT/ALT 12 U/L (13-61)
[2023-05-21 10:34] LABS: BILIRUBIN,TOTAL 0.5 mg/dL (0.2-1); TOT PROT 7.1 g/dl (6.4-8.2)
[2023-05-21 10:35] LABS: ALK PHOS 174 U/L (45-117)
[2023-05-21 10:57] LABS: CREATININE 11.8 mg/dL (0.55-1.3)
[2023-05-21] MEDS: NIFEdipine E.R. 90 MG TABLET PO SCH (13:42)
[2023-05-21] MEDS ORDERED: EPOETIN ALFA-EPBX 10,000 UNIT/ML VIAL SQ ONE (13:51)
[2023-05-22 11:20] VITALS: BP 108/66; PULSE 100; TEMP 98.6
== END 2023-05-22 11:56 | disposition home or self-care (01) | DRG 470 ==
LOC: JER 11:59 → JERBED 16:26 → J6S 18:52
PROVIDERS: ADMIT Internal Medicine; ATTEND Internal Medicine
PROC: 05HM33Z Insertion of Infusion Device into Right Internal Jugular Vein, Percutaneous Approach (ICD-10-PCS; principal; 2023-05-13)
PROC: 5A1D70Z Performance of Urinary Filtration, Intermittent, Less than 6 Hours Per Day (ICD-10-PCS; 2023-05-15)
PROC: 07DR3ZX Extraction of Iliac Bone Marrow, Percutaneous Approach, Diagnostic (ICD-10-PCS; 2023-05-16)
PROC: 30233N1 Transfusion of Nonautologous Red Blood Cells into Peripheral Vein, Percutaneous Approach (ICD-10-PCS; 2023-05-17)
PROC: 5A1D70Z Performance of Urinary Filtration, Intermittent, Less than 6 Hours Per Day (ICD-10-PCS; 2023-05-17)
PROC: 05PYX3Z Removal of Infusion Device from Upper Vein, External Approach (ICD-10-PCS; 2023-05-20)
PROC: 5A1D70Z Performance of Urinary Filtration, Intermittent, Less than 6 Hours Per Day (ICD-10-PCS; 2023-05-21)
DX: I12.0 Hypertensive chronic kidney disease with stage 5 chronic kidney disease or end stage renal disease (principal); D69.3 Immune thrombocytopenic purpura; N17.9 Acute kidney failure, unspecified; D64.9 Anemia, unspecified; D72.829 Elevated white blood cell count, unspecified; N18.6 End stage renal disease; Z99.2 Dependence on renal dialysis
CPT/HCPCS: 0241U-QW; 20225; 36415; 36430; 71045-TC-FY; 71250-TC; 74176-TC; 76000-TC-FY; 76641-TC-50; 80048; 80053; 81003; 82525; 82550; 82803; 83605; 83735; 84100; 84484; 84630; 84703; 85025; 85027; 85610; 85730; 86704; 86803; 86850; 86900; 86901; 86922; 87040; 87070; 87086; 87205; 87340; 87517; 88300-TC; 93005; 93010; 94760; 97116-GP; 97162-GP; 99285-25; C1750; J1644; P9058; Q5106

== ENCOUNTER 2023-09-10 18:32 | Inpatient (IN) | payer OTHER ==
[2023-09-10 22:12] LABS: HEMATOCRIT 29.2 % (32.4-45.2); HEMOGLOBIN 9.6 GM/dL (10.7-15.3); MCH 28.6 pg (25.7-33.7); MCHC 32.7 g/dl (32.0-36.0); MEAN CELL VOLUME 87.6 fl (80-96); MEAN PLT VOLUME 8.1 fl (7.5-11.1); PLATELET COUNT 141 10^3/uL (134-434); RBC 3.34 M/mm3 (3.60-5.2); RDW 14.8 % (11.6-15.6); WHITE BLOOD COUNT 17.8 K/mm3 (4.0-10.0)
[2023-09-10 22:19] LABS: INR 0.99 (0.83-1.09); PROTHROMBIN TIME (PATIENT) 11.2 SEC (9.7-13.0)
[2023-09-10 22:22] LABS: ACTIVATED PTT 25.8 SECONDS (25.2-36.5)
[2023-09-10 22:35] LABS: CHLORIDE 102 mmol/L (98-107); SODIUM 137 mmol/L (136-145)
[2023-09-10 22:38] LABS: ALBUMIN 3.7 g/dl (3.4-5.0); ANION GAP 14 mmol/L (4-13); BLOOD UREA NITROGEN 85.5 mg/dL (7-18); CALCIUM 8.7 mg/dL (8.5-10.1); CO2 21 mmol/L (21-32); GLUCOSE,RANDOM 115 mg/dL (74-106); MAGNESIUM 2.1 mg/dL (1.8-2.4)
[2023-09-10 22:41] LABS: PHOSPHOROUS 3.5 mg/dL (2.5-4.9); SGPT/ALT 28 U/L (13-61)
[2023-09-10 22:42] LABS: SGOT/AST 13 U/L (15-37)
[2023-09-10 22:43] LABS: TOT PROT 7.1 g/dl (6.4-8.2)
[2023-09-10 22:44] LABS: ALK PHOS 101 U/L (45-117)
[2023-09-10 22:49] LABS: BILIRUBIN,TOTAL 0.5 mg/dL (0.2-1)
[2023-09-11 07:05] LABS: HEMATOCRIT 28.1 % (32.4-45.2); HEMOGLOBIN 9.2 GM/dL (10.7-15.3); MCH 29.1 pg (25.7-33.7); MCHC 32.8 g/dl (32.0-36.0); MEAN CELL VOLUME 88.9 fl (80-96); MEAN PLT VOLUME 9.1 fl (7.5-11.1); PLATELET COUNT 125 10^3/uL (134-434); RBC 3.16 M/mm3 (3.60-5.2); RDW 14.8 % (11.6-15.6); WHITE BLOOD COUNT 13.6 K/mm3 (4.0-10.0)
[2023-09-11 07:11] LABS: CHLORIDE 102 mmol/L (98-107); POTASSIUM 4.3 mmol/L (3.5-5.1); SODIUM 137 mmol/L (136-145)
[2023-09-11 07:20] LABS: ALBUMIN 3.4 g/dl (3.4-5.0); ANION GAP 11 mmol/L (4-13); CALCIUM 8.3 mg/dL (8.5-10.1); CO2 24 mmol/L (21-32); GLUCOSE,RANDOM 81 mg/dL (74-106); MAGNESIUM 2.2 mg/dL (1.8-2.4)
[2023-09-11 07:21] LABS: BLOOD UREA NITROGEN 87.2 mg/dL (7-18)
[2023-09-11 07:23] LABS: PHOSPHOROUS 4.4 mg/dL (2.5-4.9); SGPT/ALT 26 U/L (13-61)
[2023-09-11 07:24] LABS: BILIRUBIN,TOTAL 0.4 mg/dL (0.2-1); SGOT/AST 11 U/L (15-37); TOT PROT 6.4 g/dl (6.4-8.2)
[2023-09-11 07:26] LABS: ALK PHOS 93 U/L (45-117)
[2023-09-11 07:32] LABS: CREATININE 9.4 mg/dL (0.55-1.3)
[2023-09-11] MEDS: LABETALOL HCL 200 MG TABLET (FP) PO SCH (09:22)
[2023-09-11] MEDS: NIFEdipine E.R 60 MG TABLET PO SCH (09:22)
[2023-09-11] MEDS ORDERED: HEPARIN NA (PORCINE) 5,000 UNITS/ML 1ML VIAL ONE ×2 (10:42→10:49)
[2023-09-11] MEDS ORDERED: LIDOCAINE HCL 1%, 10 MG/ML (20ML VIAL) ONE ×2 (10:43→10:49)
[2023-09-11] MEDS ORDERED: POVIDONE-IODINE OINTMENT 10% - 28.4 GM TUBE ONE (10:49)
[2023-09-11] MEDS ORDERED: MIDAZOLAM HCL 2 MG/2 ML SINGLE DOSE VIAL ONE (11:02)
[2023-09-11] MEDS ORDERED: SUCCINYLCHOLINE CHLORIDE 200 MG/10 ML SYRINGE ONE (11:02)
[2023-09-11] MEDS ORDERED: PROPOFOL 20 ML ONE (11:02)
[2023-09-11] MEDS ORDERED: ceFAZolin SODIUM 1 GM VIAL ONE (11:03)
[2023-09-11] MEDS: ceFAZolin SODIUM 1 GM VIAL IVPB ONE (11:06)
[2023-09-11] MEDS ORDERED: DEXAMETHASONE SOD PHOSPHATE 4 MG/1 ML VIAL ONE (11:06)
[2023-09-11] MEDS ORDERED: ONDANSETRON 4 MG/2 ML VIAL ONE (11:06)
[2023-09-11] MEDS: LIDOCAINE HCL 1%, 10 MG/ML (20ML VIAL) SQ ONE (11:24)
[2023-09-11] MEDS ORDERED: SODIUM CHLORIDE 250 ML IV PRN ×2 (12:04→12:58)
[2023-09-11] MEDS: SODIUM CHLORIDE 1,000 ML IV SCH (13:06)
[2023-09-11] MEDS ORDERED: ACETAMINOPHEN 325 MG TABLET (FP) PO PRN (13:15)
[2023-09-11] MEDS: EPOETIN ALFA-EPBX 10,000 UNIT/ML VIAL SQ ONE ×2 (13:45→17:16)
[2023-09-11 16:06] LABS: INR 1.03 (0.83-1.09); PROTHROMBIN TIME (PATIENT) 11.8 SEC (9.7-13.0)
[2023-09-11] MEDS: oxyCODONE HCL 5 MG TABLET PO PRN (22:19)
[2023-09-12] MEDS: LABETALOL HCL 200 MG TABLET (FP) PO SCH (01:30)
[2023-09-12 06:31] VITALS: RESP 20
[2023-09-12 08:53] LABS: HEMATOCRIT 27.7 % (32.4-45.2); MCH 28.7 pg (25.7-33.7); MCHC 32.7 g/dl (32.0-36.0); MEAN CELL VOLUME 87.9 fl (80-96); MEAN PLT VOLUME 8.8 fl (7.5-11.1); PLATELET COUNT 70 10^3/uL (134-434); RBC 3.15 M/mm3 (3.60-5.2); RDW 14.7 % (11.6-15.6); WHITE BLOOD COUNT 14.4 K/mm3 (4.0-10.0)
[2023-09-12 09:28] LABS: POTASSIUM 3.5 mmol/L (3.5-5.1)
[2023-09-12 09:41] LABS: CALCIUM 7.6 mg/dL (8.5-10.1)
[2023-09-12 09:42] LABS: MAGNESIUM 1.9 mg/dL (1.8-2.4)
[2023-09-12 09:44] LABS: CREATININE 5.7 mg/dL (0.55-1.3)
[2023-09-12 09:46] LABS: BILIRUBIN,TOTAL 0.7 mg/dL (0.2-1); TOT PROT 5.9 g/dl (6.4-8.2)
[2023-09-12 09:51] LABS: BLOOD UREA NITROGEN 41.2 mg/dL (7-18)
[2023-09-12] MEDS ORDERED: NIFEdipine E.R 60 MG TABLET PO SCH ×2 (10:00→10:56)
[2023-09-12 10:44] LABS: ANISOCYTOSIS 0; HELMET CELLS 0; HOWELL-JOLLY BODIES 0; MACROCYTOSIS 0; OVALOCYTE 0; ROULEAU 0; SICKELED CELLS 0; TARGET CELLS 0; TEAR DROP CELLS 0; TOXIC GRANULATION 0
[2023-09-12] MEDS ORDERED: LABETALOL HCL 200 MG TABLET (FP) PO SCH (10:56)
[2023-09-12 12:17] VITALS: BP 112/68; PULSE 106; TEMP 98.9
== END 2023-09-12 11:58 | disposition home or self-care (01) | DRG 444 ==
LOC: JER 18:32 → JERBED 22:51 → J7W 09-11 09:41
PROVIDERS: ADMIT Internal Medicine; ATTEND Nurse Practitioner Acute Care
PROC: 031C09F Bypass Left Radial Artery to Lower Arm Vein with Autologous Venous Tissue, Open Approach (ICD-10-PCS; principal; 2023-09-11 10:30)
DX: I12.0 Hypertensive chronic kidney disease with stage 5 chronic kidney disease or end stage renal disease (principal); N18.6 End stage renal disease; Z99.2 Dependence on renal dialysis; D69.6 Thrombocytopenia, unspecified; D64.9 Anemia, unspecified
CPT/HCPCS: 36415; 80053; 83735; 84100; 84703; 85025; 85027; 85610; 85730; 86705; 86803; 86850; 86900; 86901; 87340; 87517; 93005; 93010; 94760; 99285-25; J1644; Q5106

== ENCOUNTER 2023-09-16 12:13 | Observation (INO) | payer OTHER ==
[2023-09-16] MEDS ORDERED: ACETAMINOPHEN INJECTION 100 ML IVPB ONE (13:43)
[2023-09-16] MEDS: ACETAMINOPHEN 1000 MG/100 ML BAG IVPB ONE (13:59)
[2023-09-16] MEDS: ACETAMINOPHEN 500 MG TABLET (FP) PO ONE (14:01)
[2023-09-16 14:11] LABS: INR 1.05 (0.83-1.09); PROTHROMBIN TIME (PATIENT) 11.9 SEC (9.7-13.0)
[2023-09-16 14:13] LABS: ACTIVATED PTT 32.9 SECONDS (25.2-36.5)
[2023-09-16 14:16] LABS: BASO % 0.5 % (0-2.0); EOS % 2.6 % (0-4.5); HEMATOCRIT 31.3 % (32.4-45.2); HEMOGLOBIN 10.4 GM/dL (10.7-15.3); LYMPH % 12.1 % (8-40); MCH 29.6 pg (25.7-33.7); MCHC 33.2 g/dl (32.0-36.0); MEAN CELL VOLUME 89.2 fl (80-96); MONO % 7.2 % (3.8-10.2); NEUT % 77.6 % (42.8-82.8); RBC 3.51 M/mm3 (3.60-5.2); RDW 16.4 % (11.6-15.6); WHITE BLOOD COUNT 10.5 K/mm3 (4.0-10.0)
[2023-09-16 14:21] LABS: PLATELET COUNT 28 10^3/uL (134-434)
[2023-09-16 14:27] LABS: POTASSIUM 3.4 mmol/L (3.5-5.1)
[2023-09-16 14:29] LABS: CALCIUM 8.5 mg/dL (8.5-10.1)
[2023-09-16 14:30] LABS: ALBUMIN 3.6 g/dl (3.4-5.0); BLOOD UREA NITROGEN 34.1 mg/dL (7-18)
[2023-09-16 14:33] LABS: CREATININE 4.9 mg/dL (0.55-1.3)
[2023-09-16 14:35] LABS: BILIRUBIN,TOTAL 0.5 mg/dL (0.2-1); TOT PROT 7.3 g/dl (6.4-8.2)
[2023-09-16 15:02] LABS: BASO % 0.6 % (0-2.0); HEMATOCRIT 28.3 % (32.4-45.2); HEMOGLOBIN 9.5 GM/dL (10.7-15.3); LYMPH % 13.2 % (8-40); MCH 29.6 pg (25.7-33.7); MCHC 33.6 g/dl (32.0-36.0); MEAN CELL VOLUME 87.9 fl (80-96); MEAN PLT VOLUME 9.7 fl (7.5-11.1); MONO % 8.4 % (3.8-10.2); NEUT % 74.8 % (42.8-82.8); RBC 3.22 M/mm3 (3.60-5.2); RDW 16.6 % (11.6-15.6); WHITE BLOOD COUNT 10.3 K/mm3 (4.0-10.0)
[2023-09-16 15:08] LABS: PLATELET COUNT 20 10^3/uL (134-434)
[2023-09-16] MEDS ORDERED: ACETAMINOPHEN 325 MG TABLET (FP) PO PRN (16:12)
[2023-09-16] MEDS: CALCIUM ACETATE 667 MG CAPSULE (FP) PO SCH (18:09)
[2023-09-16 20:25] VITALS: BMI 22.4
[2023-09-16] MEDS: LABETALOL HCL 200 MG TABLET (FP) PO SCH (21:48)
[2023-09-17 01:51] VITALS: RESP 18
[2023-09-17] MEDS: ACETAMINOPHEN 325 MG TABLET (FP) PO PRN (07:40)
[2023-09-17 08:46] LABS: BASO % 0.8 % (0-2.0); EOS % 3.2 % (0-4.5); HEMATOCRIT 30.3 % (32.4-45.2); HEMOGLOBIN 10.3 GM/dL (10.7-15.3); LYMPH % 16.9 % (8-40); MCH 30.3 pg (25.7-33.7); MCHC 33.8 g/dl (32.0-36.0); MEAN CELL VOLUME 89.7 fl (80-96); MEAN PLT VOLUME 12.2 fl (7.5-11.1); MONO % 7.3 % (3.8-10.2); NEUT % 71.8 % (42.8-82.8); PLATELET COUNT 37 10^3/uL (134-434); RBC 3.38 M/mm3 (3.60-5.2); RDW 16.7 % (11.6-15.6)
[2023-09-17 09:12] LABS: POTASSIUM 4.7 mmol/L (3.5-5.1)
[2023-09-17] MEDS: NIFEdipine E.R 60 MG TABLET PO SCH (09:21)
[2023-09-17 10:04] LABS: CALCIUM 7.9 mg/dL (8.5-10.1)
[2023-09-17 10:05] LABS: BLOOD UREA NITROGEN 50.6 mg/dL (7-18)
[2023-09-17 10:08] LABS: CREATININE 6.7 mg/dL (0.55-1.3)
[2023-09-17 15:49] VITALS: BP 118/75; PULSE 72; TEMP 98
== END 2023-09-17 16:29 | disposition home or self-care (01) ==
LOC: JER 12:13 → UNDOADMOB 16:09 → JERBED 16:09 → INTOOBSV 16:09 → JERBED 16:13 → J8W 19:04
PROVIDERS: ADMIT Internal Medicine; ATTEND Nurse Practitioner Family
PROC: 3E033NZ Introduction of Analgesics, Hypnotics, Sedatives into Peripheral Vein, Percutaneous Approach (ICD-10-PCS; principal; 2023-09-16)
DX: N18.6 End stage renal disease (principal); Z45.2 Encounter for adjustment and management of vascular access device; D64.9 Anemia, unspecified; D69.6 Thrombocytopenia, unspecified; Z99.2 Dependence on renal dialysis; M79.602 Pain in left arm; Z90.49 Acquired absence of other specified parts of digestive tract
CPT/HCPCS: 36415; 80048; 80053; 84703; 85025; 85610; 85730; 86850; 86900; 86901; 93005; 93010; 96374; 99285-25; G0378; J0131

== ENCOUNTER 2023-09-30 12:06 | Inpatient (IN) | payer OTHER ==
[2023-09-30 12:17] VITALS: BMI 25.4
[2023-09-30 14:58] LABS: HEMATOCRIT 34.2 % (32.4-45.2); HEMOGLOBIN 11.2 GM/dL (10.7-15.3); MCH 30.7 pg (25.7-33.7); MCHC 32.8 g/dl (32.0-36.0); MEAN CELL VOLUME 93.8 fl (80-96); MEAN PLT VOLUME 9.1 fl (7.5-11.1); PLATELET COUNT 57 10^3/uL (134-434); RBC 3.65 M/mm3 (3.60-5.2); RDW 21.9 % (11.6-15.6); WHITE BLOOD COUNT 11.8 K/mm3 (4.0-10.0)
[2023-09-30 15:02] LABS: VENOUS BASE EXCESS 4.1 mmol/L (-2-2); VENOUS PCO2 37.3 mmHg (38-52); VENOUS PH 7.487 (7.310-7.410)
[2023-09-30] MEDS ORDERED: ACETAMINOPHEN INJECTION 100 ML IVPB ONE (15:02)
[2023-09-30] MEDS: ACETAMINOPHEN 1000 MG/100 ML BAG IVPB ONE (15:02)
[2023-09-30 15:20] LABS: POTASSIUM 4.2 mmol/L (3.5-5.1)
[2023-09-30 15:22] LABS: CALCIUM 8.4 mg/dL (8.5-10.1)
[2023-09-30 15:23] LABS: ALBUMIN 3.4 g/dl (3.4-5.0)
[2023-09-30 15:26] LABS: CREATININE 4.7 mg/dL (0.55-1.3)
[2023-09-30 15:27] LABS: BILIRUBIN,TOTAL 0.7 mg/dL (0.2-1); TOT PROT 6.4 g/dl (6.4-8.2)
[2023-09-30 15:43] LABS: ANISOCYTOSIS 2+; MACROCYTOSIS 0; OVALOCYTE 1+; TEAR DROP CELLS 1+
[2023-09-30] MEDS ORDERED: NIFEdipine E.R 60 MG TABLET PO ONE (17:45)
[2023-09-30] MEDS: CALCIUM ACETATE 667 MG CAPSULE (FP) PO SCH (17:52)
[2023-09-30] MEDS: NIFEdipine E.R 60 MG TABLET PO SCH (17:52)
[2023-09-30] MEDS ORDERED: ACETAMINOPHEN/CAFFEINE/BUTALBITAL 1 TAB ONE (18:12)
[2023-09-30] MEDS: ACETAMINOPHEN/CAFFEINE/BUTALBITAL 1 TAB PO PRN (18:13)
[2023-09-30] MEDS ORDERED: LABETALOL HCL 200 MG TABLET (FP) ONE (22:26)
[2023-09-30] MEDS: LABETALOL HCL 200 MG TABLET (FP) PO SCH (22:37)
[2023-10-01] MEDS: MECLIZINE HCL 25 MG TABLET (FP) PO SCH
[2023-10-01 09:39] LABS: HEMATOCRIT 33.6 % (32.4-45.2); MCH 30.9 pg (25.7-33.7); MCHC 32.6 g/dl (32.0-36.0); MEAN CELL VOLUME 94.7 fl (80-96); MEAN PLT VOLUME 10.1 fl (7.5-11.1); PLATELET COUNT 42 10^3/uL (134-434); RBC 3.55 M/mm3 (3.60-5.2); RDW 22.5 % (11.6-15.6); WHITE BLOOD COUNT 11.5 K/mm3 (4.0-10.0)
[2023-10-01 10:12] LABS: POTASSIUM 5.2 mmol/L (3.5-5.1)
[2023-10-01 10:34] LABS: CALCIUM 8.3 mg/dL (8.5-10.1)
[2023-10-01 10:35] LABS: ALBUMIN 3.4 g/dl (3.4-5.0); MAGNESIUM 2.2 mg/dL (1.8-2.4)
[2023-10-01 10:38] LABS: BILIRUBIN,TOTAL 1.2 mg/dL (0.2-1); CREATININE 6.9 mg/dL (0.55-1.3); PHOSPHOROUS 5.8 mg/dL (2.5-4.9)
[2023-10-01 10:41] LABS: TOT PROT 6.2 g/dl (6.4-8.2)
[2023-10-01 10:45] LABS: BLOOD UREA NITROGEN 59.8 mg/dL (7-18)
[2023-10-02 10:29] LABS: CHLORIDE 105 mmol/L (98-107); POTASSIUM 4.5 mmol/L (3.5-5.1); SODIUM 140 mmol/L (136-145)
[2023-10-02 10:32] LABS: ANION GAP 12 mmol/L (4-13); BLOOD UREA NITROGEN 82.5 mg/dL (7-18); CALCIUM 8.4 mg/dL (8.5-10.1); CO2 23 mmol/L (21-32)
[2023-10-02 10:33] LABS: GLUCOSE,RANDOM 74 mg/dL (74-106)
[2023-10-02 10:36] LABS: CREATININE 8.8 mg/dL (0.55-1.3)
[2023-10-02] MEDS ORDERED: SODIUM CHLORIDE 250 ML IV PRN (11:04)
[2023-10-03 10:27] VITALS: BP 132/85; PULSE 80; RESP 18; TEMP 99.3
== END 2023-10-03 11:28 | disposition home or self-care (01) | DRG 54 ==
LOC: JER 12:06 → JERBED 17:36 → J8W 23:04 → OBSVTOIN 10-01 11:01 → J8W 10-01 19:50
PROVIDERS: ADMIT Internal Medicine; ATTEND Nurse Practitioner Acute Care
PROC: 5A1D70Z Performance of Urinary Filtration, Intermittent, Less than 6 Hours Per Day (ICD-10-PCS; principal; 2023-10-02)
DX: G43.909 Migraine, unspecified, not intractable, without status migrainosus (principal); I12.0 Hypertensive chronic kidney disease with stage 5 chronic kidney disease or end stage renal disease; N18.6 End stage renal disease; D69.6 Thrombocytopenia, unspecified; D63.1 Anemia in chronic kidney disease; R00.2 Palpitations; R42 Dizziness and giddiness; Z99.2 Dependence on renal dialysis
CPT/HCPCS: 36415; 70450-TC; 71045-TC-FY; 74150-TC; 80048; 80053; 82803; 83735; 83880; 84100; 84484; 84703; 85025; 85027; 93005; 93010; 99285-25; G0378; J0131

== ENCOUNTER 2023-11-26 10:57 | Day surgery (SDC) | payer OTHER ==
[2023-11-26 12:16] LABS: CHLORIDE 101 mmol/L (98-107); POTASSIUM 4.3 mmol/L (3.5-5.1); SODIUM 137 mmol/L (136-145)
[2023-11-26 12:19] LABS: ALBUMIN 3.9 g/dl (3.4-5.0); ANION GAP 8 mmol/L (4-13); CALCIUM 9.3 mg/dL (8.5-10.1); CO2 27 mmol/L (21-32); GLUCOSE,RANDOM 97 mg/dL (74-106)
[2023-11-26 12:20] LABS: BLOOD UREA NITROGEN 41.3 mg/dL (7-18)
[2023-11-26 12:22] LABS: BILIRUBIN,DIRECT 0.1 mg/dL (0.0-0.2); SGOT/AST 13 U/L (15-37); SGPT/ALT 19 U/L (13-61)
[2023-11-26 12:24] LABS: BILIRUBIN,TOTAL 0.6 mg/dL (0.2-1); CREATININE 7.6 mg/dL (0.55-1.3); TOT PROT 7.6 g/dl (6.4-8.2)
[2023-11-26 12:25] LABS: ALK PHOS 118 U/L (45-117)
[2023-11-26 12:40] LABS: BASO % 1.1 % (0-2.0); EOS % 4.4 % (0-4.5); HEMOGLOBIN 10.8 GM/dL (10.7-15.3); LYMPH % 16.3 % (8-40); MCH 29.9 pg (25.7-33.7); MCHC 33.6 g/dl (32.0-36.0); MEAN CELL VOLUME 88.8 fl (80-96); MEAN PLT VOLUME 11.5 fl (7.5-11.1); MONO % 5.9 % (3.8-10.2); NEUT % 72.3 % (42.8-82.8); RDW 16.4 % (11.6-15.6); WHITE BLOOD COUNT 7.8 K/mm3 (4.0-10.0)
[2023-11-26] MEDS: ACETAMINOPHEN 325 MG TABLET (FP) PO ONE (12:55)
[2023-11-26] MEDS: diphenhydrAMINE HCL 25 MG CAPSULE (FP) PO ONE (12:56)
[2023-11-26 13:26] LABS: PLATELET COUNT 30 10^3/uL (134-434)
[2023-11-26] MEDS: SODIUM CHLORIDE IVPB ONE (14:15)
[2023-11-26] MEDS: RITUXIMAB PVVR IVPB ONE (14:15)
[2023-11-26 18:12] VITALS: RESP 20
[2023-11-26 18:16] VITALS: PULSE 91
[2023-11-26 18:29] VITALS: BP 123/77; TEMP 98.7
== END 2023-11-26 18:36 | disposition home or self-care (01) ==
LOC: JONCCHEMO 10:57 → J7W 11:09 → JONCCHEMO 18:36
PROVIDERS: ATTEND Student in an Organized Health Care Education/Training Program
DX: D69.6 Thrombocytopenia, unspecified (principal); D64.9 Anemia, unspecified; N17.9 Acute kidney failure, unspecified
CPT/HCPCS: 36415; 80048; 80076; 85025; 96413; 96415; Q5119

== ENCOUNTER 2023-12-03 10:50 | Day surgery (SDC) | payer OTHER ==
[2023-12-03 11:22] LABS: BASO % 1.3 % (0-2.0); EOS % 5.7 % (0-4.5); HEMATOCRIT 29.7 % (32.4-45.2); HEMOGLOBIN 9.8 GM/dL (10.7-15.3); LYMPH % 21.4 % (8-40); MCH 29.4 pg (25.7-33.7); MCHC 32.9 g/dl (32.0-36.0); MEAN CELL VOLUME 89.1 fl (80-96); MEAN PLT VOLUME 10.5 fl (7.5-11.1); MONO % 7.4 % (3.8-10.2); NEUT % 64.2 % (42.8-82.8); PLATELET COUNT 91 10^3/uL (134-434); RBC 3.33 M/mm3 (3.60-5.2); RDW 15.8 % (11.6-15.6); WHITE BLOOD COUNT 6.4 K/mm3 (4.0-10.0)
[2023-12-03 11:52] LABS: CHLORIDE 102 mmol/L (98-107); POTASSIUM 4.5 mmol/L (3.5-5.1); SODIUM 141 mmol/L (136-145)
[2023-12-03 11:53] LABS: CALCIUM 10.3 mg/dL (8.5-10.1)
[2023-12-03 11:55] LABS: ALBUMIN 4.1 g/dl (3.4-5.0); ANION GAP 8 mmol/L (4-13); BLOOD UREA NITROGEN 32.7 mg/dL (7-18); CO2 31 mmol/L (21-32); GLUCOSE,RANDOM 88 mg/dL (74-106)
[2023-12-03 11:57] LABS: CREATININE 7.6 mg/dL (0.55-1.3); SGOT/AST 13 U/L (15-37); SGPT/ALT 17 U/L (13-61)
[2023-12-03 11:59] LABS: LDH 191 U/L (84-246)
[2023-12-03 12:00] LABS: BILIRUBIN,TOTAL 0.6 mg/dL (0.2-1); TOT PROT 7.5 g/dl (6.4-8.2)
[2023-12-03 12:01] LABS: ALK PHOS 129 U/L (45-117)
[2023-12-03 12:03] LABS: BILIRUBIN,DIRECT 0.1 mg/dL (0.0-0.2)
[2023-12-03] MEDS: SODIUM CHLORIDE 250 ML IV ONE (12:54)
[2023-12-03] MEDS: ACETAMINOPHEN 325 MG TABLET (FP) PO ONE (12:55)
[2023-12-03] MEDS: diphenhydrAMINE HCL 25 MG CAPSULE (FP) PO ONE (12:57)
[2023-12-03] MEDS: RITUXIMAB PVVR IVPB ONE (13:59)
[2023-12-03] MEDS: SODIUM CHLORIDE IVPB ONE (13:59)
[2023-12-03 16:56] VITALS: RESP 18; TEMP 97.7
[2023-12-03 17:03] VITALS: BP 104/66; PULSE 86
== END 2023-12-03 17:00 | disposition home or self-care (01) ==
LOC: JONCCHEMO 10:50 → J7W 10:50 → JONCCHEMO 17:00
PROVIDERS: ATTEND Student in an Organized Health Care Education/Training Program
PROC: 3E0330M Introduction of Antineoplastic, Monoclonal Antibody, into Peripheral Vein, Percutaneous Approach (ICD-10-PCS; principal; 2023-12-03)
DX: D69.6 Thrombocytopenia, unspecified (principal)
CPT/HCPCS: 36415; 80048; 80076; 83615; 85025; 86705; 86707; 86708; 87350; 87517; 87522; 96413; 96415; Q5119

== ENCOUNTER 2023-12-10 10:34 | Day surgery (SDC) | payer OTHER ==
[2023-12-10 11:18] LABS: BASO % 0.8 % (0-2.0); EOS % 5.2 % (0-4.5); HEMATOCRIT 32.3 % (32.4-45.2); HEMOGLOBIN 10.5 GM/dL (10.7-15.3); LYMPH % 15.2 % (8-40); MCH 29.8 pg (25.7-33.7); MCHC 32.5 g/dl (32.0-36.0); MEAN CELL VOLUME 91.6 fl (80-96); MEAN PLT VOLUME 11.1 fl (7.5-11.1); NEUT % 73.8 % (42.8-82.8); RBC 3.52 M/mm3 (3.60-5.2); RDW 17.5 % (11.6-15.6); WHITE BLOOD COUNT 6.8 K/mm3 (4.0-10.0)
[2023-12-10 11:26] LABS: PLATELET COUNT 35 10^3/uL (134-434)
[2023-12-10 11:28] LABS: CHLORIDE 101 mmol/L (98-107); POTASSIUM 4.1 mmol/L (3.5-5.1); SODIUM 138 mmol/L (136-145)
[2023-12-10 11:30] LABS: CALCIUM 9.2 mg/dL (8.5-10.1)
[2023-12-10 11:31] LABS: ANION GAP 9 mmol/L (4-13); BLOOD UREA NITROGEN 43.8 mg/dL (7-18); CO2 28 mmol/L (21-32); GLUCOSE,RANDOM 137 mg/dL (74-106)
[2023-12-10 11:33] LABS: BILIRUBIN,DIRECT 0.1 mg/dL (0.0-0.2)
[2023-12-10 11:34] LABS: SGOT/AST 10 U/L (15-37); SGPT/ALT 16 U/L (13-61)
[2023-12-10 11:35] LABS: BILIRUBIN,TOTAL 0.7 mg/dL (0.2-1); CREATININE 7.8 mg/dL (0.55-1.3)
[2023-12-10 11:36] LABS: ALK PHOS 120 U/L (45-117)
[2023-12-10 11:44] LABS: LDH 158 U/L (84-246)
[2023-12-10] MEDS: diphenhydrAMINE HCL 25 MG CAPSULE (FP) PO ONE (11:59)
[2023-12-10] MEDS: ACETAMINOPHEN 325 MG TABLET (FP) PO ONE (11:59)
[2023-12-10] MEDS: SODIUM CHLORIDE 250 ML IV ONE (12:00)
[2023-12-10] MEDS: SODIUM CHLORIDE IVPB ONE (12:44)
[2023-12-10] MEDS: RITUXIMAB PVVR IVPB ONE (12:44)
[2023-12-10 16:34] VITALS: BP 114/69; PULSE 72; RESP 20; TEMP 98.1
== END 2023-12-10 15:15 | disposition home or self-care (01) ==
LOC: JONCNONCHE 10:34
PROVIDERS: ATTEND Student in an Organized Health Care Education/Training Program
PROC: 3E0330M Introduction of Antineoplastic, Monoclonal Antibody, into Peripheral Vein, Percutaneous Approach (ICD-10-PCS; principal; 2023-12-10)
DX: Z51.11 Encounter for antineoplastic chemotherapy (principal); D69.6 Thrombocytopenia, unspecified
CPT/HCPCS: 36415; 80048; 80076; 83615; 85025; 86705; 86707; 86708; 87350; 87517; 96413; 96415; Q5119

== ENCOUNTER 2023-12-17 11:38 | Day surgery (SDC) | payer OTHER ==
[2023-12-17 11:43] LABS: BASO % 2.8 % (0-2.0); EOS % 3.7 % (0-4.5); HEMATOCRIT 33.4 % (32.4-45.2); HEMOGLOBIN 10.9 GM/dL (10.7-15.3); LYMPH % 19.4 % (8-40); MCH 29.6 pg (25.7-33.7); MCHC 32.6 g/dl (32.0-36.0); MEAN CELL VOLUME 90.6 fl (80-96); MEAN PLT VOLUME 10.6 fl (7.5-11.1); MONO % 4.8 % (3.8-10.2); NEUT % 69.3 % (42.8-82.8); PLATELET COUNT 57 10^3/uL (134-434); RBC 3.69 M/mm3 (3.60-5.2); RDW 16.3 % (11.6-15.6); WHITE BLOOD COUNT 4.6 K/mm3 (4.0-10.0)
[2023-12-17 11:58] LABS: CHLORIDE 102 mmol/L (98-107); POTASSIUM 4.1 mmol/L (3.5-5.1); SODIUM 137 mmol/L (136-145)
[2023-12-17 12:00] LABS: CALCIUM 9.3 mg/dL (8.5-10.1)
[2023-12-17 12:01] LABS: ALBUMIN 4.1 g/dl (3.4-5.0); ANION GAP 6 mmol/L (4-13); BLOOD UREA NITROGEN 32.5 mg/dL (7-18); CO2 30 mmol/L (21-32); GLUCOSE,RANDOM 115 mg/dL (74-106)
[2023-12-17 12:03] LABS: BILIRUBIN,DIRECT 0.1 mg/dL (0.0-0.2)
[2023-12-17 12:04] LABS: SGOT/AST 12 U/L (15-37); SGPT/ALT 17 U/L (13-61)
[2023-12-17 12:05] LABS: BILIRUBIN,TOTAL 0.5 mg/dL (0.2-1); TOT PROT 7.2 g/dl (6.4-8.2)
[2023-12-17 12:07] LABS: ALK PHOS 118 U/L (45-117)
[2023-12-17 12:08] LABS: CREATININE 7.9 mg/dL (0.55-1.3)
[2023-12-17] MEDS: SODIUM CHLORIDE 250 ML IV ONE (12:10)
[2023-12-17] MEDS: diphenhydrAMINE HCL 25 MG CAPSULE (FP) PO ONE (12:15)
[2023-12-17] MEDS: ACETAMINOPHEN 325 MG TABLET (FP) PO ONE (12:15)
[2023-12-17] MEDS: RITUXIMAB PVVR IVPB ONE (13:29)
[2023-12-17] MEDS: SODIUM CHLORIDE IVPB ONE (13:29)
[2023-12-18 07:24] VITALS: RESP 18
[2023-12-18 07:28] VITALS: BP 126/81; PULSE 76; TEMP 98.8
== END 2023-12-17 16:15 | disposition home or self-care (01) ==
LOC: JONCNONCHE 11:38 → J7W 11:38 → JONCNONCHE 16:15
PROVIDERS: ATTEND Student in an Organized Health Care Education/Training Program
DX: D69.6 Thrombocytopenia, unspecified (principal)
CPT/HCPCS: 36415; 80048; 80076; 85025; 86705; 86707; 86708; 87350; 87517; 87522; 96413; 96415; Q5119